=== PATIENT | female | born 1965 | race Caucasian/White ===

== ENCOUNTER 2025-02-07 11:30 | Emergency (ER) | payer BC, SELFPAY ==
--- OUTSIDE RECORDS SUMMARY | 2024-12-25 14:54 | XMS_ITS | Continuity of Care Document ---
Author Organization [facility] ([facility]) Encounters Encounter Type Service Location Arrival/Admit Date Discharge/Depart Date Discharge Disposition Informant Office or other outpatient consultation for a new or established patient, 20 mins or more, which requires a medically appropriate history and/or examination and straightforward medical decision making. [facility] 12/25/2024 20:54:34 [place] 12/25/2024 21:59:04 [facility] Immunizations Effective Date Vaccine Code Vaccine Name Status Inform ant 01/18/2021 08:00:00 UTC 207 - completed C AIR 09/02/2021 07:00:00 UTC 207 - completed C AIR 12/09/2021 07:00:00 UTC 229 - completed C AIR 05/24/2020 07:00:00 UTC 212 - completed C AIR
--- OUTSIDE RECORDS SUMMARY | 2025-02-07 11:36 | XMS_ITS | Clinical Summary ---
Author Organization [facility] Address [address] [place] [id number] Care Team Providers Care Auto Clutch Specialist Name Role Phone Unavailable Primary Care Provider Unavailabl e Source Comments IMPORTANT WARNING: This document is intended for the use of the person orentity to which it is addressed and may contain information that is privilegedand confidential, the disclosure of which is governed by applicable law. If youare not the intended recipient, or the employee or agent responsible to deliverit to the intended recipient, you are notified that any dissemination,distribution or copying of this information is STRICTLY PROHIBITED. If you havereceived this communication in error, please immediately notify us by telephoneat [phone] and return this original message or destroy it.[facility] Allergies No known active allergies Medications ketoconazole 2% shampoo Apply topically two (2) times a week. Active ciclopirox 1% shampooIndicatio ns:Seborrheic dermatitis Apply to scalp, leave on for 3-5 minutes, then rinse off. Use few times weekly. 120 mL 1 7 Active sertraline 50 mg tablet 50 mg Taking 75mg. 7 Active budesonide-formo terol 80-4.5 mcg/act inhalerIndicatio ns:SOB (shortness of breath),Mild intermittent reactive airway disease with acute exacerbation Inhale 2 puffs two (2) times daily. 10.2 g 7 Active Additional Information Patient not taking.Reported on 06/11/2017 buspirone 10 mg tablet 8 Active erythromycin 5 mg/g ophthalmic ointment Place 0.5 inches into both eyes at bedtime. 3.5 g 6 8 Active sertraline 100 mg tablet TK 1 T PO QD GENERIC FOR ZOLOFT 1 8 Active Active Problems Problem Noted Date Diagnosed Date Hip weakness 05/22/2017 Weakness of trunk musculature 05/22/2017 Chronic hip pain, right 05/22/2017 Pain aggravated by walking 05/22/2017 Dry eye syndrome of bilateral lacrimal glands Overview (03/24/2016): Dry eye symptoms right eye more than left eye--see hpi With possible exposure component--very expressive and positive scleral show during instants of conversation--vs normal post dilation TSH levels within normal limits, thought positive Family history for thyroid disease Reviewed photo of drivers license--no lagophthalmos and right eye slightly more closed than left. 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 But gland product is still thick toothpaste like upon expression with pressure to upper lid temporraly both eyes Continue doxy at 50 mg by mouth daily 02/25/15 improved plan discontinue doxy -- Reviewed return precautions Plan annual eye exam 03/03/16 no recurrence of styes, but gets tearing at night Cont warm compresses As above. 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 Intraocular pressure within normal limits on multiple exams RJS Low suspicion recheck 1 yr 06/23/2016 rjs 03/15/16 good iop Will check oct n next visit History of smoking 10/13/2014 Overview (03/24/2016): Quit 2009 Basal cell carcinoma 11/10/2013 Cervical dysplasia 11/10/2013 Immunizations Immunization Administration Dates Next Due Tdap 01/28/2016 influenza vaccine IM quadriv alent (Fluzone Quad) (PF) SYR (6-35 months of age) 01/21/2016(Deferred: Other - ordered in error) influenza vaccine IM quadriv alent (Fluzone Quad) (PF) SYR/SDV (6 months of age and older) 12/08/2016,01/21/2016,11/06/2014 influenza, unspecified formulation 11/15/2018, zoster live vaccine (Zostavax) 01/28/2016 Family History Medical History Relation Comments Depression Father Heart disease Father Hypertension Father Cancer Mother Depression Mother Hypertension Mother Thyroid disease Mother Relation Status Comments Father Mother Social History Tobacco Use Types Packs/Day Years Used Date Smoking Tobacco: Former Cigarettes 0.8 30 Smokeless Tobacco: Never Comments:Quit in 2008 Alcohol Use Standard Drinks/Week Comments Yes 0 (1 standard drink = 0.6 oz pur e alcohol) 3-4 drinks per month Depression Risk (PHQ) Answer Date Recor ded Total Risk Score based on the patient's PHQ-9 if documented Not on file 01/07/2022 Total Risk Score based on th e patient's IP PHQ-2 if documented Not on file 01/07/2022 Total Risk Score based on the patient's PHQ-2 if documented Not on file 01/07/2022 Social Isolation Answer Date Recorded How often do you see or talk to people that you care about and feel close to? Not on file 08/18/2020 Comments No Sex and Gender Information Value Date Recorded Sex Assigned at Not on file Legal Sex Female 7:40 PM PDT Gender Identity Not on file Sexual Orientation Not on file Last Filed Vital Signs Vital Sign Reading Time Taken Comments Blood Pressure 109/74 06/11/2017 10:14 AM PDT Pulse 82 06/11/2017 10:14 AM PDT Temperature 36.9 C (98.4 F) 06/11/2017 10:14 AM PDT Respiratory Rate 16 05/02/2017 2:13 PM PDT Oxygen Saturation 98% 01/23/2017 2:27 PM PST Inhaled Oxygen Concentration - - Weight 79.4 kg (175 lb) 06/11/2017 10:14 AM PDT Height 167 cm (5' 5.75 ) 06/11/2017 10:14 AM PDT Body Mass Index 28.46 06/11/2017 10:14 AM PDT Plan of Treatment Health Maintenance Due Date Last Done Comments TB Screening(Low/Average Risk) 1965 HIV Screening 10/10/1981 Hepatitis B Screening 10/10/1981 Hepatitis C Screening 10/10/1981 CT Colonography 1983 Cologuard (External test,HM not autoupdated) 1983 FIT/FOBT 1983 Sigmoidoscopy 1983 Pneumococcal Vaccine (1 of 1 - PCV) 10/10/2013 Preventive Wellness Visit 10/10/2013 Shingles (Shingrix) Vaccine (2 of 2) 11/27/2019 10/02/2019 Cervical Ca Screening: PAP Smear 04/16/2022 04/16/2017, 04/16/2017, 10/13/2014 Cervical Cancer Screening: H PV Testing 04/16/2022 04/16/2017, 10/13/2014 Breast Cancer Screening: Mammogram 07/06/2022 07/06/2020, 05/17/2017, 05/31/2016, Additional history exists COVID-19 Vaccine(Tracks prim lorri and booster doses, not sup/immunocomp) ( - 2024- season) 2024 03/01/2023, 12/09/2021, 09/02/2021, Additional history exists Influenza Vaccine (#1) 2024 , 11/18/2021, 11/02/2020, Additional history exists Colonoscopy 12/22/2024 12/22/2014, 1104/2014 (Done elsewhere - External doc scanned and reviewed) Colorectal Cancer Screening 12/22/2024 Tdap/Td Vaccine (2 - Td or Tdap) 01/27/2026 01/28/20 16 Procedures Procedure Name Priority Date/Time Associated Diagnosis Comments OUTSIDE MAMMOGRAM 07/06/2020 12: 00 AM PDT PAP SMEAR Routine 04/16/2017 11:05 AM PST Screening for cervical cancer HPV DNA Routine 04/16/2017 11:05 AM PST Screening for cervical cancer COLONOSCOPY 12/22/2014 12:00 AM PST from Last 3 Months or Most Recently Relevant to Health Maintenance Results * OUTSIDE MAMMOGRAM (07/06/2020 12:00 AM PDT) Anatomical Region Laterality Modality Other Narrative 07/06/2020 12:00 AM PDT Ordered by an unspecified provider. [facility] Provider PODS ORDERABLES Final Result * HPV DNA PCR,Genital (04/16/2017 11:05 AM PST) HPV Type 16 Negative Negative for High Risk HPV DNA 04/18/2017 9:[address] [facility] HPV Type 18 Negative Negative for High Risk HPV DNA 04/18/2017 9:[address] [facility] Other High Risk HPV Negative Negative for High Risk HPV DNA 04/18/2017 9:[address] [facility] Genital Cytology (Exo/Endocervix) Collection / Unknown 04/16/2017 11:05 AM PST 04/16/2017 4:47 PM PST Narrative [facility] - 04/18/2017 9:13 PM PST Other High Risk HPV include: 31,33,35,39,45,51,52,56,58,59,66 and 68. Not tested for Low Risk HPV DNA. Dai Pearson MD MICROBIOLOGY - GENERAL ORDERABL ES Final Result [facility] [id number] [facility] [place] [address], [facility] [phone] * COLONOSCOPY (12/22/2014 12:00 AM PST) Narrative 12/22/2014 12:00 AM PST Ordered by an unspecified provider. [facility] Provider GENERIC SURGICAL HISTORY Final R esult from Last 3 Months or Most Recently Relevant to Health Maintenance Insurance [facility] Additional Source Comments Request medical records from [facility] directly by faxing your request to . Please call for additional information and assistance.[facility]
--- OUTSIDE RECORDS SUMMARY | 2025-02-07 11:37 | XMS_ITS | Encounter Summary ---
Author Organization [facility] Address [address] [place] [address] Care Team Providers Care Blind Escort Name Role Phone Bulkupdate, Processing Primary Care Provider Leslie vailable Reason for Visit * Reason Comments Results Encounter Details Date Type Department Care Team (Late st Contact Info) Description 11/02/2016 Telephone Head and Neck Surgery [address] [place] [address] [facility] [address] [place] [address] Samy Skelton MD [address] [facility] [address] [place], [place] [id number] Results Social History Tobacco Use Types Packs/Day Years Used Date Smoking Tobacco: Former Cigarettes 0.8 30 Smokeless Tobacco: Never Comments:Quit in 2008 Alcohol Use Standard Drinks/Week Comments Yes 0 (1 standard drink = 0.6 oz pur e alcohol) 3-4 drinks per month Comments No Sex and Gender Information Value Date Recorded Sex Assigned at Not on file Legal Sex Female 7:40 PM PDT Gender Identity Not on file Sexual Orientation Not on file documented as of this encounter Miscellaneous Notes * Telephone Encounter - Francy Lara MA - 11/06/2016 3:14 PM PDT Audio test results mailed to her home address on file. * Telephone Encounter - Samy Skelton MD - 11/06/2016 12:50 PM PDT Francy, Good Day. The patient would like a copy of her hearing test mailed to her home please. Sincerely, Devon Skelton M.D. * Telephone Encounter - Francy Lara MA - 11/03/2016 10:[address] Skelton, Hope your week off was enjoyable. Patient would like Audio test results. Thank you, Francy * Telephone Encounter - Lydia Vee - 11/02/2016 10:01 AM PDT Results Request - The patient would like to discuss the results of their recent tests. 1) Ordering MD: Costa 2) What type of test(s)? Audiology 3) When was it performed? 10/26 4) Where was it performed? [facility] If [facility], [facility]? If outside facility, what is their phone number? Patient has been notified of the 24-48 hour turnaround time. documented in this encounter Plan of Treatment Not on file documented as of this encounter Visit Diagnoses Not on filedocumented in this encounter Care Teams Blind Escort Relationship Specialty Start Date End Date Bulkupdate, Processing PCP - General 08/11/20 08/11/20 documented as of this encounter Additional Source Comments Request medical records from [facility] directly by faxing your request to . Please call for additional information and assistance.[facility] [employer] [facility]
--- OUTSIDE RECORDS SUMMARY | 2025-02-07 11:37 | XMS_ITS | Encounter Summary ---
Author Organization [facility] Address [address] [place] [address] Care Team Providers Care Barrel Bridge Assembler Name Role Phone Bulkupdate, Processing Primary Care Provider Leslie vailable Reason for Visit * Reason Comments Referral / Auth Encounter Details Date Type Department Care Team (Late st Contact Info) Description 06/05/2017 Telephone [facility] [address] [facility] [address] [place], [place] [phone] Information Security Specialist: Odilia Mei Su, MD [address] [employer] [facility] [address] [place], [place] [phone] Referral / Auth Social History Tobacco Use Types Packs/Day Years [...] encounter Miscellaneous Notes * Telephone Encounter - Remedios Small - 06/05/2017 2:41 PM PDT Pt has an appt 06-11-[address] Harish Casillas. Per Pt she would like to know if this would be the next alternative would refer to since original referring MD is no longer in practice. * Telephone Encounter - Remedios Small - 06/05/2017 2:37 PM PDT Referral Modification Request- Pt would like to ask to have her referral redirected to Gastroenterology. MD Name: Gastro Priv Department: Gastroenterology Location: [place] Patient has been notified of the 24-48 hour turnaround time. documented in this encounter Plan of Treatment Not on file documented as of this encounter Visit Diagnoses Not on filedocumented in this encounter Care Teams Barrel Bridge Assembler Relationship Specialty Start Date End Date Bulkupdate, Processing PCP - General 08/11/20 08/11/20 documented as of this encounter Additional Source Comments Request medical records from [facility] directly by faxing your request to . Please call for additional information and assistance.[facility]
--- OUTSIDE RECORDS SUMMARY | 2025-02-07 11:37 | XMS_ITS | Encounter Summary ---
Author Organization [facility] Address [address] [place] [address] Care Team Providers Care Math And Science Instructor Name Role Phone Bulkupdate, Processing Primary Care Provider Leslie vailable Reason for Visit * Reason Comments Referral / Auth Encounter Details Date Type Department Care Team (Late st Contact Info) Description 08/14/2016 Telephone [place] [address] [place], [place] [phone] Grain Elevator Clerk: Odilia Mei Su, MD [email or web address] [facility] [address] [place], [place] [phone] Referral / Auth Social History Tobacco Use [...] encounter Miscellaneous Notes * Telephone Encounter - Gricelda Anaya MA - 08/14/2016 4:49 PM PDT Called pt to inform, lm * Telephone Encounter - Dai Pearson MD - 08/14/2016 4:14 PM PDT Gricelda, pls recommend her to come in to determine urgency of dermatology apt since dermatology appointment usually can be months away. Lala * Telephone Encounter - Gricelda Anaya MA - 08/14/2016 3:42 PM PDT * Telephone Encounter - Emery Kelsey Jr. - 08/14/2016 2:37 PM PDT Referral Request 1) Patient is requesting a referral to: Dermatology Specific location? Karishma Newton MD in mind? 2) The issue (diagnosis, symptoms): skin concern left arm looks like a sore that is growing/patienthas had basal cell cancer in the past 3) Has patient been seen by their doctor for this issue? Yes on 07/11/16 4) Was an appointment offered? No 5) Patient's last office visit: 07/11/16 Patient has been notified of the 24-48 hour turnaround time. documented in this encounter Plan of Treatment Not on file documented as of this encounter Visit Diagnoses Not on filedocumented in this encounter Care Teams Math And Science Instructor Relationship Specialty Start Date End Date Bulkupdate, Processing PCP - General 08/11/20 08/11/20 documented as of this encounter Additional Source Comments Request medical records from [facility] directly by faxing your request to . Please call for additional information and assistance.[facility]
--- OUTSIDE RECORDS SUMMARY | 2025-02-07 11:37 | XMS_ITS | Encounter Summary ---
Author Organization [facility] Address [address] [place] [address] Care Team Providers Care Sewing Machine Operator Plastic Zipper Name Role Phone Bulkupdate, Processing Primary Care Provider Leslie vailable Reason for Visit * Reason Comments Results Encounter Details Date Type Department Care Team (Late st Contact Info) Description 05/24/2017 Telephone [facility] [address] [facility] [address] [place], [place] [phone] Roofer Applicator: Odilia Mei Su, MD [address] [employer] [facility] [address] [place], [place] [phone] Results Social History Tobacco Use Types Packs/Day [...] encounter Miscellaneous Notes * Telephone Encounter - Dai Pearson MD - 06/05/2017 4:39 PM PDT Released online. * Telephone Encounter - Jacquelyn Jordan - 06/05/2017 4:07 PM PDT I sent the request as URGENT and they should be faxing it to the fax in medical records, I am leaving now so please have your MA check the fax please. Thank you * Telephone Encounter - Gricelda Anaya MA - 06/05/2017 3:07 PM PDT I do not see the results * Telephone Encounter - Remedios Small - 06/05/2017 2:40 PM PDT Pt is following up in regards to previous message and would like to ask to please have the results released so she may have access online.Thank you. * Telephone Encounter - Gricelda Mclean MD - 05/24/2017 1:53 PM PDT Jacquelyn, I don't see results in the chart. Please request. * Telephone Encounter - Gricelda Barclay - 05/24/2017 9:54 AM PDT Covering MD The patient or caller has been notified that the physician is currently out of the office. Results Request - The patient would like to discuss the results of their recent tests. Pt requesting her results be viewable on pt portal. 1) Ordering MD: Dr. Pearson 2) What type of test(s)? Mammo 3) When was it performed? 05/17/17 4) Where was it performed? [facility] [place] If [facility], are results available in [facility]? yes If outside facility, what is their phone number? n/a Patient has been notified of the 24-48 hour turnaround time. documented in this encounter Plan of Treatment Not on file documented as of this encounter Visit Diagnoses Not on filedocumented in this encounter Care Teams Sewing Machine Operator Plastic Zipper Relationship Specialty Start Date End Date Bulkupdate, Processing PCP - General 08/11/20 08/11/20 documented as of this encounter Additional Source Comments Request medical records from [facility] directly by faxing your request to . Please call for additional information and assistance.[facility]
--- OUTSIDE RECORDS SUMMARY | 2025-02-07 11:37 | XMS_ITS | Clinical Summary ---
Author Organization [facility] Address [address] [place] [address] Care Team Providers Care Senior Business Broker Name Role Phone Unavailable Primary Care Provider Unavailabl e Social History Tobacco Use Types Packs/Day Years Used Date Smoking Tobacco: Never Assessed Comments Unknown Sex and Gender Information Value Date Recorded Sex Assigned at Not on file Legal Sex Female 2:42 PM PDT Gender Identity Not on file Sexual Orientation Not on file Plan of Treatment Health Maintenance Due Date Last Done Comments Colonoscopy 1965 Colorectal Cancer Screening 1965 FIT 1963 Fecal Mt-sDNA/Cologuard 1965 Mammogram 1965 Hepatitis C Screening 10/10/1981 ANNUAL WOMEN PREVENTIVE CARE EXAM 1983 Pap Smear 10/10/1984 Cervical Cancer Screening 10/10/1993 HPV/Cotest 10/10/1993 Pneumococcal Vaccines (50+ y ears) (1 of 1 - PCV) 10/10/2013 Zoster Vaccines (1 of 2) 10/10/2013 Depression Screening (Jmin tomy for this is optional) 02/20/2024 Social Drivers of Health (SDoH) 02/20/2024 COVID-19 Vaccine (4 - 2024-2 6 season) 2024 09/02/2021, 01/18/2021, 05/24/2020 Influenza Vaccine (#1) 2024 , 11/06/2019, 11/15/2018, Additional history exists DTaP, Tdap, and Td Vaccines (2 - Td or Tdap) 01/27/2026 01/28/2016 RSV Vaccines (1 - 1-dose 75+ series) 10/10/2038
--- OUTSIDE RECORDS SUMMARY | 2025-02-07 11:37 | XMS_ITS | Clinical Summary ---
Author Organization [facility] Address 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 Name Role Phone SUNILROB Primary Care Physician Unavailab VON Santoro Attending Clinician Unavailable LAB, MISC Attending Clinician Unavailable LAB, MISC Attending Clinician Unavailable PACO AKHTAR Attending Clinician Unavailable SURAJ KEARNS Attending Clinician Unavailable JES ANGELES Attending Clinician Unavailable LAB, M[facility] Attending Clinician Unavailable FRED HAMMOND Attending Clinician Leslie vaCE Villa Attending Clinician Unavailable CE HOOKER Attending Clinician UnavailHARI Roberts Attending Clinician Unavailable LAMBERT SHAH Attending Clinician Unavailabl e LAB, MISC Attending Clinician Unavailable ANDREIA GRAY Attending Clinician UnavailBEENA Richardson Attending Clinician Unavailable LUCIE MOTLEY Attending Clinician Unavailable ARIANE MATHUR Attending Clinician Unavailable FRANCHESCA DOWLING Attending Clinician Unavailable DIEGO MARIANO Attending Clinician Unavailable MARLENE BOSS Attending Clinician Unavai lable LAB, MISC Attending Clinician Unavailable JOHNNA PALOMARES Attending Clinician Unavailable JASWINDER CORTES Attending Clinician Unavailable PORFIRIO ARMENTA Attending Clinician Unava ilable SIDDHARTH LANDON Attending Clinician Unavailable ANTONIA SHORT Admitting Clinician Unava ilable PACO AKHTAR Admitting Clinician Unavailable VON LOPEZ Admitting Clinician Unavailable LAB, MISC Admitting Clinician Unavailable LAB, MISC Admitting Clinician Unavailable SURAJ KEARNS Admitting Clinician Unavailable JES ANGELES Admitting Clinician Unavailable LAB, MISC Admitting Clinician Unavailable FRED HAMMOND Admitting Clinician Leslie CE Isaacs Admitting Clinician Unavailable CE HOOKER Admitting Clinician Unavaila HARI Cooley Admitting Clinician Unavailable LAMBERT SHAH Admitting Clinician Unavailabl e LAB, [facility] Admitting Clinician Unavailable ANDREIA GRAY Admitting Clinician UnavailBEENA Richardson Admitting Clinician Unavailable LUCIE MOTLEY Admitting Clinician Unavailable ARIANE MATHUR Admitting Clinician Unavailable FRANCHESCA DOWLING Admitting Clinician Unavailable DIEGO MARIANO Admitting Clinician Unavailable MARLENE BOSS Admitting Clinician Elen sanz LAB, [facility] Admitting Clinician Unavailable JOHNNA PALOMARES Admitting Clinician Unavailable JASWINDER CORTES Admitting Clinician Unavailable SINAI SIMMS Admitting Clinician Unavailable Source Comments Data may have been removed from this record as required by [place] law. [facility] Payers Payer Name Policy Type Policy Number Effective Date Expira tion Date ANTHEM_MEDICAID Health Maintenance Organization (HMO) 2017 00:00:00 [place] [facility] [id number] 2017 00:00:00 Problems This patient has no known problems. Allergies, Adverse Reactions, Alerts Allergy Name Allergy Type Status Severity Reaction(s) Onset Date Inactive Date Treating Clinician Comments NO KNOWN ENVIRONMENTAL ALLERGIES Drug allergy Active NO KNOWN ENVIRONMENTAL ALLERGIES Drug allergy Active Medications Ordered Medication Name Filled Medication Name Start Date Stop Date Current Medication? Ordering Clinician Indication Dosage Frequency Signature (SIG) Comments Components cyanocobala min (25 VIAL in 1 CARTON > 1 mL in 1 VIAL ) cyanocobala min (25 VIAL in 1 CARTON > 1 mL in 1 VIAL ) 1-19 00:00: 00 Yes PACO AKHTAR Triamcinolo ne acetonide (15 g in 1 TUBE ) Triamcinolo ne acetonide (15 g in 1 TUBE ) 5-23 00:00: 00 Yes SURAJ Gigi (SARAH KEARNS BUSPIRONE TAB 15MG BUSPIRONE TAB 15MG 2020-02 2-14 00:00: 00 Yes MILTON PICKERING TOPIRAMATE TAB 25MG TOPIRAMATE TAB 25MG 2020-02 2-03 00:00: 00 Yes ANTONIA SHORT BUSPIRONE TAB 15MG BUSPIRONE TAB 15MG 2020-02 1-12 00:00: 00 Yes MILTON PICKERING BUSPIRONE TAB 15MG BUSPIRONE TAB 15MG 2021-1 0-12 00:00: 00 Yes MILTON PICKERING BUSPIRONE TAB 15MG BUSPIRONE TAB 15MG 1-0 9-10 00:00: 00 Yes MILTON PICKERING Buspirone Hydrochlori de (60 TABLET in 1 BOTTLE ) Buspirone Hydrochlori de (60 TABLET in 1 BOTTLE ) 1-0 9-10 00:00: 00 Yes MILTON PICKERING BUSPIRONE TAB 15MG BUSPIRONE TAB 15MG 1-0 8-12 00:00: 00 Yes MILTON PICKERING BUSPIRONE TAB 15MG BUSPIRONE TAB 15MG 1-0 7-14 00:00: 00 Yes MILTON PICKERING Buspirone Hydrochlori de (60 TABLET in 1 BOTTLE ) Buspirone Hydrochlori de (60 TABLET in 1 BOTTLE ) 1-0 6-14 00:00: 00 Yes MILTON PICKERING BUSPIRONE TAB 15MG BUSPIRONE TAB 15MG 1-0 6-14 00:00: 00 Yes MILTON PICKERING BUSPIRONE TAB 15MG BUSPIRONE TAB 15MG 2021-0 5-12 00:00: 00 Yes MILTON PICKERING BUSPIRONE TAB 15MG BUSPIRONE TAB 15MG 1-0 4-12 00:00: 00 Yes MILTON PICKERING BUSPIRONE TAB 15MG BUSPIRONE TAB 15MG 2021-0 3-12 00:00: 00 Yes MILTON PICKERING BUSPIRONE TAB 15MG BUSPIRONE TAB 15MG 1-0 2-12 00:00: 00 Yes MILTON PICKERING BUSPIRONE TAB 15MG BUSPIRONE TAB 15MG 2021-0 1-12 00:00: 00 Yes MILTON PICKERING Buspirone Hydrochlori de (60 TABLET in 1 BOTTLE ) Buspirone Hydrochlori de (60 TABLET in 1 BOTTLE ) 2019-1 1-12 00:00: 00 Yes MILTON PICKERING BUSPIRONE TAB 15MG BUSPIRONE TAB 15MG 2020-1 1-12 00:00: 00 Yes MILTON PICKERING Chlorhexidi ne Gluconate (473 mL in 1 BOTTLE ) Chlorhexidi ne Gluconate (473 mL in 1 BOTTLE ) 2020-1 0-22 00:00: 00 Yes BISI RG BUSPIRONE TAB 15MG BUSPIRONE TAB 15MG 2020-1 0-12 00:00: 00 Yes DEMARIO LOPEZ, MSN FLUBLOK QUAD INJ 2020-21 FLUBLOK QUAD INJ 2020-21 2020-0 9-17 00:00: 00 Yes MOODY MURRAY ANNA BUSPIRONE TAB 15MG BUSPIRONE TAB 15MG 2020-0 9-14 00:00: 00 Yes DEMARIO LOPEZ, MSN BUSPIRONE TAB 15MG BUSPIRONE TAB 15MG 2020-0 8-13 00:00: 00 Yes DEMARIO LOPEZ, MSN SHINGRIX INJ 50/0.5ML SHINGRIX INJ 50/0.5ML 2020-0 8-13 00:00: 00 Yes BEENA DESAI S, SERTRALINE TAB 100MG SERTRALINE TAB 100MG 2020-0 7-13 00:00: 00 Yes DEMARIO LOPEZ, MSN BUSPIRONE TAB 15MG BUSPIRONE TAB 15MG 2020-0 7-13 00:00: 00 Yes DEMARIO LOPEZ, MSN Buspirone Hydrochlori de (60 TABLET in 1 BOTTLE ) Buspirone Hydrochlori de (60 TABLET in 1 BOTTLE ) 2020-0 6-15 00:00: 00 Yes KIRSTEN HANKS BUSPIRONE TAB 15MG BUSPIRONE TAB 15MG 2020-0 6-15 00:00: 00 Yes DEMARIO LOPEZ MSN SERTRALINE TAB 100MG SERTRALINE TAB 100MG 2020-0 6-15 00:00: 00 Yes DEMARIO LOPEZ, MSN BUSPIRONE TAB 15MG BUSPIRONE TAB 15MG 2020-0 5-15 00:00: 00 Yes DEMARIO LOPEZ, MSN SERTRALINE TAB 100MG SERTRALINE TAB 100MG 2020-0 5-15 00:00: 00 Yes DEMARIO LOPEZ, MSN IBUPROFEN TAB 600MG IBUPROFEN TAB 600MG 2019-0 5-01 00:00: 00 Yes SIDDHARTH LANDON OXYCOD/APAP TAB 5-325MG OXYCOD/APAP TAB 5-325MG 2020-0 5-01 00:00: 00 Yes SIDDHARTH LANDON BUSPIRONE TAB 15MG BUSPIRONE TAB 15MG 2020-0 4-16 00:00: 00 Yes DEMARIO LOPEZ, MSN SERTRALINE TAB 100MG SERTRALINE TAB 100MG 2020-0 4-16 00:00: 00 Yes DEMARIO LOPEZ, MSN BUSPIRONE TAB 15MG BUSPIRONE TAB 15MG 2020-0 3-16 00:00: 00 Yes DEMARIO LOPEZ, MSN SERTRALINE TAB 100MG SERTRALINE TAB 100MG 2020-0 3-16 00:00: 00 Yes DEMARIO LOPEZ, MSN SERTRALINE TAB 100MG SERTRALINE TAB 100MG 2020-0 2-14 00:00: 00 Yes DEMARIO LOPEZ, MSN BUSPIRONE TAB 15MG BUSPIRONE TAB 15MG 2020-0 2-14 00:00: 00 Yes DEMARIO LOPEZ, MSN BUSPIRONE TAB 15MG BUSPIRONE TAB 15MG 2020-0 1-14 00:00: 00 Yes DEMARIO LOPEZ, MSN SERTRALINE TAB 100MG SERTRALINE TAB 100MG 2020-0 1-14 00:00: 00 Yes DEMARIO LOPEZ, MSN BUSPIRONE TAB 15MG BUSPIRONE TAB 15MG 2019-1 2-09 00:00: 00 Yes DEMARIO LOPEZ, MSN SERTRALINE TAB 100MG SERTRALINE TAB 100MG 2019-1 2-09 00:00: 00 Yes DEMARIO LOPEZ, MSN SERTRALINE TAB 100MG SERTRALINE TAB 100MG 2019-1 1-08 00:00: 00 Yes DEMARIO LOPEZ, MSN BUSPIRONE TAB 15MG BUSPIRONE TAB 15MG 2019-1 1-08 00:00: 00 Yes DEMARIO LOPEZ, MSN BUSPIRONE TAB 15MG BUSPIRONE TAB 15MG 2019-1 0-09 00:00: 00 Yes DEMARIO LOPEZ, MSN SERTRALINE TAB 100MG SERTRALINE TAB 100MG 2019-1 0-09 00:00: 00 Yes DEMARIO LOPEZ, MSN BUSPIRONE TAB 15MG BUSPIRONE TAB 15MG 2019-0 9-09 00:00: 00 Yes DEMARIO LOPEZ, MSN SERTRALINE TAB 100MG SERTRALINE TAB 100MG 2019-0 9-09 00:00: 00 Yes DEMARIO LOPEZ, MSN SERTRALINE TAB 100MG SERTRALINE TAB 100MG 2019-0 8- 00:00: 00 Yes DEMARIO LOPEZ, MSN BUSPIRONE TAB 15MG BUSPIRONE TAB 15MG 2019-0 8-09 00:00: 00 Yes DEMARIO LOPEZ, MSN BUSPIRONE TAB 15MG BUSPIRONE TAB 15MG 2019-0 7-09 00:00: 00 Yes DEMARIO LOPEZ, MSN SERTRALINE TAB 100MG SERTRALINE TAB 100MG 2019-0 7-09 00:00: 00 Yes DEMARIO LOPEZ, MSN SERTRALINE TAB 100MG SERTRALINE TAB 100MG 2019-0 6-03 00:00: 00 Yes MILTON PICKERING BUSPIRONE TAB 15MG BUSPIRONE TAB 15MG 2019-0 6-03 00:00: 00 Yes MILTON PICKERING Buspirone Hydrochlori de (100 TABLET in 1 BOTTLE ) Buspirone Hydrochlori de (100 TABLET in 1 BOTTLE ) 2019-0 3-23 00:00: 00 Yes MILTON PICKERING SERTRALINE TAB 100MG SERTRALINE TAB 100MG 2019-0 3-21 00:00: 00 Yes MILTON PICKERING FLUOCIN ACET LIBERTAD 0.01% FLUOCIN ACET LIBERTAD 0.01% 2019-0 3-20 00:00: 00 Yes AVRIL ALTMAN L (P METRONIDAZO L TAB 500MG METRONIDAZO L TAB 500MG 2019-0 3-08 00:00: 00 Yes BEENA DESAI S, BUSPIRONE TAB 10MG BUSPIRONE TAB 10MG 2019-0 2-25 00:00: 00 Yes MILTON PICKERING SERTRALINE TAB 100MG SERTRALINE TAB 100MG 2019-0 2-14 00:00: 00 Yes MILTON PICKERING BUSPIRONE TAB 10MG BUSPIRONE TAB 10MG 2019-0 1-25 00:00: 00 Yes JAMEL ALONZO S SERTRALINE TAB 100MG SERTRALINE TAB 100MG 2019-0 1-17 00:00: 00 Yes MILTON PICKERING BUSPIRONE TAB 10MG BUSPIRONE TAB 10MG 2018-1 2-26 00:00: 00 Yes JAMEL ALONZO S SERTRALINE TAB 100MG SERTRALINE TAB 100MG 2018- 2-19 00:00: 00 Yes MILTON PICKERING BUSPIRONE TAB 10MG BUSPIRONE TAB 10MG 2017-02 1-30 00:00: 00 Yes MILTON PICKERING SERTRALINE TAB 50MG SERTRALINE TAB 50MG 2017- 1-19 00:00: 00 Yes BEENA DESAI S, BUSPIRONE TAB 10MG BUSPIRONE TAB 10MG 2017- 0-31 00:00: 00 Yes JAVIER PICKERINGANTHA SERTRALINE TAB 50MG SERTRALINE TAB 50MG 2017- 0-18 00:00: 00 Yes BEENA DESAI S, BUSPIRONE TAB 15MG BUSPIRONE TAB 15MG 2017-0 9- 00:00: 00 Yes BEENA DESAI S, SERTRALINE TAB 50MG SERTRALINE TAB 50MG 2017-0 9 00:00: 00 Yes BEENA DESAI S, BUSPIRONE TAB 10MG BUSPIRONE TAB 10MG 2017-0 9 00:00: 00 Yes BEENA DESAI S, Procedures Procedure Date / Time Performed Performing Clinicia n Device Medication list documented i n medical record (COA) 2024-07-01 00:00:00 Review of all medications by a prescribing practitioner or clinical pharmacist (such as, prescriptions, OTCs, herbal therapies and supplements) documented in the medical record (COA) 2024-07-01 00:00:00 Influenza immunization administered or previously received (HIV) (P-ESRD) 2024-07-01 00:00:00 Body Mass Index (BMI), documented (PV) 2024-07-01 00:00:00 Pneumococcal vaccine administered or previously received (COPD) (PV), (IBD) 2024-07-01 00:00:00 Most recent systolic blood pressure less than 130 mm Hg (DM), (HTN, CKD, CAD) 2024-07-01 00:00:00 Most recent diastolic blood pressure less than 80 mm Hg (HTN, CKD, CAD) (DM) 2024-07-01 00:00:00 Weight recorded (PAG) 2024-07-01 00:00:00 Blood pressure measured (CKD)(DM) 2024-07-01 00:00:00 Vital signs (temperature, pulse, respiratory rate, and blood pressure) documented and reviewed (CAP) (EM) 2024-07-01 00:00:00 Current tobacco non-user (CA D, CAP, COPD, PV) (DM) (IBD) 2024-07-01 00:00:00 Negative screen for depressi ve symptoms as categorized by using a standardized depression screening/assessment tool (MDD) 2024-07-01 00:00:00 [id number] 2024-06-13 00:00:00 [id number] 2024-06-13 00:00:00 Measurement of albumin 2024-06-13 00:00:00 Troponin, quantitative 2024-06-13 00:00:00 Fibrin degradation products, D-dimer; quantitative 2024-06-13 00:00:00 Thromboplastin time, partial (PTT); plasma or whole blood 2024-06-13 00:00:00 Blood count; complete (CBC), automated (Hgb, Hct, RBC, WBC and platelet count) and automated differential WBC count 2024-06-13 00:00:00 Prothrombin time 2024-06-13 00:00:00 Radiologic examination, ches t; single view 2024-06-13 00:00:00 [id number] 2024-06-13 00:00:00 [id number] 2024-06-13 00:00:00 Electrocardiogram, routine E CG with at least 12 leads; tracing only, without interpretation and report 2024-06-13 00:00:00 Electrocardiogram, routine E CG with at least 12 leads; interpretation and report only 2024-06-13 00:00:00 Fibrin degradation products, D-dimer; quantitative 2024-06-13 00:00:00 Troponin, quantitative 2024-06-13 00:00:00 Measurement of albumin 2024-06-13 00:00:00 Blood count; complete (CBC), automated (Hgb, Hct, RBC, WBC and platelet count) and automated differential WBC count 2024-06-13 00:00:00 Prothrombin time 2024-06-13 00:00:00 [id number] 2024-06-13 00:00:00 Thromboplastin time, partial (PTT); plasma or whole blood 2024-06-13 00:00:00 Folic acid; serum 2024-03-20 00:00:00 Hemoglobin; glycosylated (A1C) 2024-03-20 00:00:00 Lipid panel This panel must include the following: Cholesterol, serum, total (89090) Lipoprotein, direct measurement, high density cholesterol (HDL cholesterol) (93895) Triglycerides (47155) 2024-03-20 00:00:00 Immunologic analysis techniq ue on serum 2024-03-20 00:00:00 Thyroid stimulating hormone (TSH) 2024-03-20 00:00:00 Cyanocobalamin (Vitamin B-12) 2024-03-20 00:00:00 Collection of venous blood b y venipuncture 2024-03-20 00:00:00 Measurement of albumin 2024-03-20 00:00:00 Blood count; complete (CBC), automated (Hgb, Hct, RBC, WBC and platelet count) and automated differential WBC count 2024-03-20 00:00:00 Homocysteine 2024-03-20 00:00:00 Pyridoxal phosphate (Vitamin B-6) 2024-03-20 00:00:00 Thiamine (Vitamin B-1) 2024-03-20 00:00:00 Measurement of organic acid 2024-03-20 00:00:00 Brief emotional/behavioral assessment (eg, depression inventory, attention-deficit/hyperactivity disorder [ADHD] scale), with scoring and documentation, per standardized instrument 2024-01-31 00:00:00 [id number] 2024-01-21 00:00:00 Immunization administration (includes percutaneous, intradermal, subcutaneous, or intramuscular injections); 1 vaccine (single or combination vaccine/toxoid) 2024-01-21 00:00:00 Immunologic analysis techniq ue on serum 2024-01-08 00:00:00 Measurement of immunoglobulin 2024-01-08 00:00:00 Protein; electrophoretic fractionation and quantitation, serum 2024-01-08 00:00:00 Beta-2 microglobulin 2024-01-08 00:00:00 Collection of venous blood b y venipuncture 2024-01-08 00:00:00 [id number] 2024-01-08 00:00:00 Blood count; complete (CBC), automated (Hgb, Hct, RBC, WBC and platelet count) and automated differential WBC count 2024-01-08 00:00:00 Bilirubin; direct 2024-01-08 00:00:00 Measurement of albumin 2024-01-08 00:00:00 Immunization administration (includes percutaneous, intradermal, subcutaneous, or intramuscular injections); 1 vaccine (single or combination vaccine/toxoid) 2023-11-22 00:00:00 Influenza virus vaccine, trivalent (IIV3), split virus, preservative free, 0.5 mL dosage, for intramuscular use 2023-11-22 00:00:00 Blood, occult, by fecal hemoglobin determination by immunoassay, qualitative, feces, 1-3 simultaneous determinations 2023-11-19 00:00:00 Magnetic resonance (eg, prot on) imaging, spinal canal and contents, cervical; without contrast material 2023-11-14 00:00:00 Magnetic resonance (eg, prot on) imaging, spinal canal and contents, lumbar; without contrast material 2023-11-14 00:00:00 Needle electromyography, eac h extremity, with related paraspinal areas, when performed, done with nerve conduction, amplitude and latency/velocity study; complete, five or more muscles studied, innervated by three or mor 2023-11-02 00:00:00 Nerve conduction study 2023-11-02 00:00:00 Measurement of organic acid 2023-10-17 00:00:00 Copper 2023-10-17 00:00:00 Pyridoxal phosphate (Vitamin B-6) 2023-10-17 00:00:00 Thiamine (Vitamin B-1) 2023-10-17 00:00:00 Screening digital breast tomosynthesis, bilateral (List separately in addition to code for primary procedure) 2023-08-21 00:00:00 Mammography of both breasts 2023-08-21 00:00:00 Brief emotional/behavioral assessment (eg, depression inventory, attention-deficit/hyperactivity disorder [ADHD] scale), with scoring and documentation, per standardized instrument 2023-08-10 00:00:00 Electrocardiogram, routine E CG with at least 12 leads; with interpretation and report 2023-06-07 00:00:00 Electrocardiogram, routine E CG with at least 12 leads; with interpretation and report 2023-06-07 00:00:00 Basic vestibular evaluation, includes spontaneous nystagmus test with eccentric gaze fixation nystagmus, with recording, positional nystagmus test, minimum of 4 positions, with recording, optokinetic nystagmus test, bidi 2023-05-09 00:00:00 Acoustic immittance testing, includes tympanometry (impedance testing), acoustic reflex threshold testing, and acoustic reflex decay testing 2023-05-09 00:00:00 Caloric vestibular test 2023-05-09 00:00:00 Sinusoidal vertical axis rotational testing 2023-05-09 00:00:00 Measurement of organic acid 2023-02-22 00:00:00 Cryoglobulin, qualitative or semi-quantitative (eg, cryocrit) 2023-02-22 00:00:00 Immunologic analysis techniq ue on serum 2023-02-22 00:00:00 Measurement of albumin 2023-02-22 00:00:00 Cyanocobalamin (Vitamin B-12) 2023-02-22 00:00:00 Blood count; complete (CBC), automated (Hgb, Hct, RBC, WBC and platelet count) and automated differential WBC count 2023-02-22 00:00:00 Collection of venous blood b y venipuncture 2023-02-22 00:00:00 Lipid panel This panel must include the following: Cholesterol, serum, total (31825) Lipoprotein, direct measurement, high density cholesterol (HDL cholesterol) (77957) Triglycerides (39499) 2023-02-22 00:00:00 Homocysteine 2023-02-22 00:00:00 Hemoglobin; glycosylated (A1C) 2023-02-22 00:00:00 Thyroid stimulating hormone (TSH) 2023-02-22 00:00:00 Folic acid; serum 2023-02-22 00:00:00 Pyridoxal phosphate (Vitamin B-6) 2023-02-22 00:00:00 Thiamine (Vitamin B-1) 2023-02-22 00:00:00 Measurement of immunoglobulin 2023-01-25 00:00:00 Immunologic analysis techniq ue on serum 2023-01-25 00:00:00 Protein; electrophoretic fractionation and quantitation, serum 2023-01-25 00:00:00 Beta-2 microglobulin 2023-01-25 00:00:00 Collection of venous blood b y venipuncture 2023-01-25 00:00:00 Blood count; complete (CBC), automated (Hgb, Hct, RBC, WBC and platelet count) and automated differential WBC count 2023-01-25 00:00:00 Bilirubin; direct 2023-01-25 00:00:00 [id number] 2023-01-25 00:00:00 Measurement of albumin 2023-01-25 00:00:00 Radiologic examination, osse ous survey; complete (axial and appendicular skeleton) 2023-01-15 00:00:00 Brief emotional/behavioral assessment (eg, depression inventory, attention-deficit/hyperactivity disorder [ADHD] scale), with scoring and documentation, per standardized instrument 2023-01-10 00:00:00 Injection, gadoterate meglumine, 0.1 ml 2023-01-04 00:00:00 Magnetic resonance (eg, prot on) imaging, brain (including brain stem); without contrast material, followed by contrast material(s) and further sequences 2023-01-04 00:00:00 Blood, occult, by fecal hemoglobin determination by immunoassay, qualitative, feces, 1-3 simultaneous determinations 2022-12-01 00:00:00 Mammography of both breasts 2022-09-13 00:00:00 VON LOPEZ Screening digital breast tomosynthesis, bilateral (List separately in addition to code for primary procedure) 2022-09-13 00:00:00 VON LOPEZ Measurement of organic acid 2022-07-06 00:00:00 [place], [facility] [place]yridoxal phosphate (Vitamin B-6) 2022-07-06 00:00:00 LAB, [facility] Thiamine (Vitamin B-1) 2022-07-06 00:00:00 LAB, [facility] Measurement of albumin 2022-07-06 00:00:00 LAB, [facility] Immunologic analysis techniq ue on serum 2022-07-06 00:00:00 LAB, [facility] Cyanocobalamin (Vitamin B-12) 2022-07-06 00:00:00 LAB, [facility] Folic acid; serum 2022-07-06 00:00:00 LAB, [facility] Lipid panel This panel must include the following: Cholesterol, serum, total (66366) Lipoprotein, direct measurement, high density cholesterol (HDL cholesterol) (90474) Triglycerides (25940) 2022-07-06 00:00:00 LAB, [facility] Hemoglobin; glycosylated (A1C) 2022-07-06 00:00:00 LAB , [facility] Collection of venous blood b y venipuncture 2022-07-06 00:00:00 LAB, [facility] Homocysteine 2022-07-06 00:00:00 LAB, [facility] Thyroid stimulating hormone (TSH) 2022-07-06 00:00:00 LAB, [facility] Blood count; complete (CBC), automated (Hgb, Hct, RBC, WBC and platelet count) and automated differential WBC count 2022-07-06 00:00:00 LAB, [facility] Detection test for human papillomavirus (hpv) 2022-06-02 00:00:00 LAB, [facility] Pap test 2022-06-02 00:00:00 LAB, [facility] Therapeutic, prophylactic, o r diagnostic injection (specify substance or drug); subcutaneous or intramuscular 2022-04-11 00:00:00 LAMP, JES C Injection, vitamin b-12 cyanocobalamin, up to 1000 mcg 2022-04-11 00:00:00 LAMP, JES C Therapeutic, prophylactic, o r diagnostic injection (specify substance or drug); subcutaneous or intramuscular 2022-04-04 00:00:00 LAMP, JES C Therapeutic, prophylactic, o r diagnostic injection (specify substance or drug); subcutaneous or intramuscular 2022-03-27 00:00:00 LAMP, JES C Injection, vitamin b-12 cyanocobalamin, up to 1000 mcg 2022-03-27 00:00:00 LAMP, JES C Injection, vitamin b-12 cyanocobalamin, up to 1000 mcg 2022-03-20 00:00:00 LAMP JES C Pyridoxal phosphate (Vitamin B-6) 2022-02-17 00:00:00 LAB, [facility] Thiamine (Vitamin B-1) 2022-02-17 00:00:00 LAB, [facility] Copper 2022-02-17 00:00:00 LAB, [facility] Measurement of organic acid 2022-02-17 00:00:00 LAB, [facility] Magnetic resonance (eg, prot on) imaging, brain (including brain stem); without contrast material, followed by contrast material(s) and further sequences 2022-01-02 00:00:00 CE COLEMAN Low osmolar contrast materia l, 300-399 mg/ml iodine concentration, per ml 2022-01-02 00:00:00 CE HOOKER Computed tomography, thorax; with contrast material(s) 2022-01-02 00:00:00 CE HOOKER Computed tomography, abdomen and pelvis; with contrast material(s) 2022-01-02 00:00:00 CE HOOKER Blood, occult, by fecal hemoglobin determination by immunoassay, qualitative, feces, 1-3 simultaneous determinations 2021-12-12 00:00:00 LAB, MISC Measurement of total protein in serum 2021-12-07 00:00:00 LAB, MISC [id number] 2021-12-07 00:00:00 LAB, MISC Protein; electrophoretic fractionation and quantitation, serum 2021-12-07 00:00:00 LAB, MISC Measurement of immunoglobulin 2021-12-07 00:00:00 LAB, MISC Immunologic analysis techniq ue on serum 2021-12-07 00:00:00 LAB, MISC Measurement of albumin 2021-12-07 00:00:00 HARI ROMO Eligible clinician attests t o documenting in the medical record they obtained, updated, or reviewed the patient's current medications 2021-12-07 00:00:00 HARI ROMO Blood count; complete (CBC), automated (Hgb, Hct, RBC, WBC and platelet count) and automated differential WBC count 2021-12-07 00:00:00 HARI ROMO Mammography of both breasts 2021-07-20 00:00:00 VON LOPEZ Screening digital breast tomosynthesis, bilateral (List separately in addition to code for primary procedure) 2021-07-20 00:00:00 VON LOPEZ [id number] 2021-06-02 00:00:00 LAB, MISC Protein; electrophoretic fractionation and quantitation, serum 2021-06-02 00:00:00 LAB, MISC Measurement of immunoglobulin 2021-06-02 00:00:00 LAB, MISC Immunologic analysis techniq ue on serum 2021-06-02 00:00:00 LAB, MISC Measurement of total protein in serum 2021-06-02 00:00:00 LAB, MISC Collection of venous blood b y venipuncture 2021-06-02 00:00:00 LAMBERT SHAH Measurement of albumin 2021-06-02 00:00:00 ATKINS Eligible clinician attests t o documenting in the medical record they obtained, updated, or reviewed the patient's current medications 2021-06-02 00:00:00 LAMBERT SHAH Blood count; complete (CBC), automated (Hgb, Hct, RBC, WBC and platelet count) and automated differential WBC count 2021-06-02 00:00:00 LAMBERT SHAH Pyridoxal phosphate (Vitamin B-6) 2021-04-28 00:00:00 LAB, MISC Copper 2021-04-28 00:00:00 LAB, MISC Thiamine (Vitamin B-1) 2021-04-28 00:00:00 LAB, MISC Measurement of organic acid 2021-04-28 00:00:00 LAB, M ISC Low osmolar contrast materia l, 300-399 mg/ml iodine concentration, per ml 2021-04-22 00:00:00 ANDREIA GRAY Computed tomographic angiography, head, with contrast material(s), including noncontrast images, if performed, and image postprocessing 2021-04-22 00:00:00 ANDREIA GRAY Computed tomographic angiography, neck, with contrast material(s), including noncontrast images, if performed, and image postprocessing 2021-04-22 00:00:00 ANDREIA GRAY Magnetic resonance (eg, prot on) imaging, brain (including brain stem); without contrast material, followed by contrast material(s) and further sequences 2021-04-21 00:00:00 ANDREIA GRAY Injection, gadoterate meglumine, 0.1 ml 2021-04-21 00:00:00 ANDREIA GRAY Low osmolar contrast materia l, 300-399 mg/ml iodine concentration, per ml 2021-04-21 00:00:00 FREDERICK GRAYNIMila Rdz Computed tomographic angiography, head, with contrast material(s), including noncontrast images, if performed, and image postprocessing 2021-04-21 00:00:00 ANDREIA GRAY Blood, occult, by fecal hemoglobin determination by immunoassay, qualitative, feces, 1-3 simultaneous determinations 2020-11-08 00:00:00 LAB, MISC Mammography of both breasts 2020-07-06 00:00:00 VON LOPEZ Screening digital breast tomosynthesis, bilateral (List separately in addition to code for primary procedure) 2020-07-06 00:00:00 VON LOPEZ Thyroid stimulating hormone (TSH) 2020-05-31 00:00:00 LAB, MISC Lipid panel This panel must include the following: Cholesterol, serum, total (90156) Lipoprotein, direct measurement, high density cholesterol (HDL cholesterol) (56812) Triglycerides (88613) 2020-05-31 00:00:00 LAB, MIS Measurement of albumin 2020-05-31 00:00:00 LAB, MISC Hemoglobin; glycosylated (A1C) 2020-05-31 00:00:00 LAB , MISC Destruction (eg, laser surge ry, electrosurgery, cryosurgery, chemosurgery, surgical curettement), premalignant lesions (eg, actinic keratoses); first lesion 2019-12-25 00:00:00 SURAJ KEARNS X-ray of shoulder 2019-10-06 00:00:00 LUCIE MOTLEY X-ray of wrist 2019-10-06 00:00:00 LUCIE MOTLEY X-ray of cervical spine 2019-10-06 00:00:00 STORM MOTLEY X-ray of shoulder 2019-07-21 00:00:00 LUCIE MOTLEY X-ray of shoulder 2019-06-30 00:00:00 LUCIE MOTLEY X-ray of humerus 2019-06-30 00:00:00 LUCIE MOTLEY X-ray of shoulder 2019-06-20 00:00:00 ARIANE MATHUR X-ray of shoulder 2019-06-20 00:00:00 [facility], [id number] 2019-06-20 00:00:00 [facility], Rheumatoid factor titer 2018-11-15 00:00:00 LAB, MISC Antinuclear antibodies ([place]) 2018-11-15 00:00:00 LAB, MISC Immunization administration (includes percutaneous, intradermal, subcutaneous, or intramuscular injections); 1 vaccine (single or combination vaccine/toxoid) 2018-11-15 00:00:00 JES ANGELES Influenza virus vaccine, quadrivalent (IIV4), split virus, 0.5 mL dosage, for intramuscular use 2018-11-15 00:00:00 JES ANGELES X-ray of hand 2018-08-29 00:00:00 ZAND, TINOOSH X-ray of hand 2018-08-29 00:00:00 ZAND, TINOOSH Hemoglobin; glycosylated (A1C) 2018-08-16 00:00:00 LAB , MISC Thyroid stimulating hormone (TSH) 2018-08-16 00:00:00 LAB, [facility] Lipid panel This panel must include the following: Cholesterol, serum, total (58449) Lipoprotein, direct measurement, high density cholesterol (HDL cholesterol) (14912) Triglycerides (75975) 2018-08-16 00:00:00 LAB, [facility] Measurement of albumin 2018-08-16 00:00:00 LAB, [facility] Screening digital breast tomosynthesis, bilateral (List separately in addition to code for primary procedure) 2018-05-07 00:00:00 ZAND, TINOOSH Mammography of both breasts 2018-05-07 00:00:00 ZAND, TINOOSH Immunization administration (includes percutaneous, intradermal, subcutaneous, or intramuscular injections); 1 vaccine (single or combination vaccine/toxoid) 2017-11-23 00:00:00 JES ANGELES Vaccine for influenza for injection into muscle 2017-11-23 00:00:00 JES ANGELES Hemoglobin; glycosylated (A1C) 2017-11-09 00:00:00 JASWINDER CORTES Bilirubin; direct 2017-11-09 00:00:00 JASWINDER CORTES Measurement of albumin 2017-11-09 00:00:00 JASWINDER CORTES Reason for Visit Hospital Encounter Encounters Start Date/Time End Date/Time Encounter Type Admission Type Attending Clinicians Care Facility Care Department Encounter ID 2025-01-09 18:33:17 [facility] None [id number] [facility] 2025-01-05 21:29:23 [facility] None [id number] 2025-01-02 08:48:40 [facility] None [id number] [facility] 2024-08-28 16:00:26 [facility] None [id number] 2024-07-01 00:00:00 Professional Claim 0 [place] [facility] Unknown [id number] @[facility] 2024-06-13 00:00:00 Institutiona l Claim 0 [place] Medicaid Unknown [id number] @[facility] 2024-06-13 00:00:00 Professional Claim 0 [place] Medicaid Unknown [id number] @[facility] 2024-06-13 00:00:00 Professional Claim 0 [place] Medicaid Unknown [id number] @[facility] 2024-06-13 00:00:00 Professional Claim 0 [place] [facility] Unknown [id number] @[facility] 2024-05-20 00:00:00 Professional Claim 0 [place] Medicaid Unknown [id number] @[facility] 2024-04-11 00:00:00 Professional Claim 0 [place] Medicaid Unknown [id number] @[facility] 2024-03-20 00:00:00 Professional Claim 0 [place] Medicaid Unknown [id number] @[facility] 2024-03-20 00:00:00 Professional Claim 0 [place] [facility] Unknown [id number] @[facility] 2024-03-20 00:00:00 Professional Claim 0 [place] Medicaid Unknown [id number] @[facility] 2024-01-31 00:00:00 Professional Claim 0 [place] Medicaid Unknown [id number] @[facility] 2024-01-22 00:00:00 Professional Claim 0 [place] Medicaid Unknown [id number] @[facility] 2024-01-21 00:00:00 Professional Claim 0 [place] Medicaid Unknown [id number] @[facility] 2024-01-08 00:00:00 Professional Claim 0 [place] Medicaid Unknown [id number] @[facility] 2023-12-27 00:00:00 Professional Claim 0 [place] Medicaid Unknown [id number] @[facility] 2023-12-25 00:00:00 Professional Claim 0 [place] Medicaid Unknown [id number] @[facility] 2023-11-22 00:00:00 Professional Claim 0 [place] Medicaid Unknown [id number] @[facility] 2023-11-19 00:00:00 Professional Claim 0 [place] Medicaid Unknown [id number] @[facility] 2023-11-15 13:05:36 [facility] None [id number] 2023-11-14 00:00:00 Professional Claim 0 [place] Medicaid Unknown [id number] @[facility] 2023-11-14 00:00:00 Professional Claim 0 [place] Medicaid Unknown [id number] @[facility] 2023-11-02 00:00:00 Professional Claim 0 [place] Medicaid Unknown [id number] @[facility] 2023-10-30 00:00:00 Professional Claim 0 [place] [facility] Unknown [id number] @[facility] 2023-10-17 00:00:00 Professional Claim 0 [place] Medicaid Unknown [id number] @[facility] 2023-10-17 00:00:00 Professional Claim 0 [place] Medicaid Unknown [id number] @[facility] 2023-09-27 00:00:00 Professional Claim 0 [place] Medicaid Unknown [id number] @[facility] 2023-08-21 00:00:00 Professional Claim 0 [place] Medicaid Unknown [id number] @[facility] 2023-08-10 00:00:00 Professional Claim 0 [place] Medicaid Unknown [id number] @[facility] 2023-08-09 00:00:00 Professional Claim 0 [place] Medicaid Unknown [id number] @[facility] 2023-07-24 00:00:00 Professional Claim 0 [place] Medicaid Unknown [id number] @[facility] 2023-06-07 00:00:00 Professional Claim 0 [place] Medicaid Unknown [id number] @[facility] 2023-06-07 00:00:00 Professional Claim 0 [place] Medicaid Unknown [id number] @[facility] 2023-06-07 00:00:00 Professional Claim 0 [place] [facility] Unknown [id number] @[facility] 2023-05-09 00:00:00 Professional Claim 0 [place] Medicaid Unknown [id number] @[facility] 2023-02-22 00:00:00 Professional Claim 0 [place] [facility] Unknown [id number] @[facility] 2023-02-22 00:00:00 Professional Claim 0 [place] Medicaid Unknown [id number] @[facility] 2023-02-22 00:00:00 Professional Claim 0 [place] Medicaid Unknown [id number] @[facility] 2023-02-14 00:00:00 Professional Claim 0 [place] Medicaid Unknown [id number] @[facility] 2023-02-01 00:00:00 Professional Claim 0 [place] [facility] Unknown [id number] @[facility] 2023-01-25 00:00:00 Professional Claim 0 [place] [facility] Unknown [id number] @[facility] 2023-01-23 00:00:00 Professional Claim 0 [place] Medicaid Unknown [id number] @[facility] 2023-01-18 00:00:00 Professional Claim 0 [place] [facility] Unknown [id number] @[facility] 2023-01-15 00:00:00 Professional Claim 0 [place] [facility] Unknown [id number] @[facility] 2023-01-10 00:00:00 Professional Claim 0 [place] [facility] Unknown [id number] @[facility] 2023-01-04 00:00:00 Professional Claim 0 [place] [facility] Unknown [id number] @[facility] 2022-12-14 00:00:00 Professional Claim 0 [place] Medicaid Unknown [id number] @[facility] 2022-12-01 00:00:00 Professional Claim 0 [place] Medicaid Unknown [id number] @[facility] 2022-09-14 00:00:00 Professional Claim 0 [place] [facility] Unknown [id number] @[facility] 2022-09-13 00:00:00 Professional Claim 0 VON LOPEZ [place] Unknown [id number] @[facility] 2022-07-06 00:00:00 Professional Claim 0 LAB, MISC [place] Unknown [id number] @[facility] 2022-07-06 00:00:00 Professional Claim 0 LAB, MISC [place] Unknown [id number] @[facility] 2022-07-06 00:00:00 Professional Claim 0 LAB, MISC [place] Unknown [id number] @[facility] 2022-06-02 00:00:00 Professional Claim 0 LAB, MISC [place] Unknown [id number] @[facility] 2022-06-02 00:00:00 Professional Claim 0 LAB, MISC [place] Unknown [id number] @[facility] 2022-05-30 00:00:00 Professional Claim 0 PACO AKHTAR [place] Medicaid Unknown [id number] @[facility] 2022-05-24 00:00:00 Professional Claim 0 SURAJ KEARNS [place] Medicaid Unknown [id number] @[facility] 2022-04-11 00:00:00 Professional Claim 0 JES ANGELES [place] Medicaid Unknown [id number] @[facility] 2022-04-04 00:00:00 Professional Claim 0 JES ANGELES [place] Unknown [id number] @[facility] 2022-03-27 00:00:00 Professional Claim 0 JES ANGELES [place] Unknown [id number] @[facility] 2022-03-20 00:00:00 Professional Claim 0 JES ANGELES [place] Unknown [id number] @[facility] 2022-02-17 00:00:00 Professional Claim 0 LAB MISC [place] Unknown [id number] @[facility] 2022-02-17 00:00:00 Professional Claim 0 LAB, MISC [place] Unknown [id number] @[facility] 2022-02-10 00:00:00 Professional Claim 0 PACO AKHTAR [place] Unknown [id number] @[facility] 2022-01-23 00:00:00 Professional Claim 0 FRED HAMMONDSUZACK [place] Medicaid Unknown [id number] @[facility] 2022-01-05 00:00:00 Professional Claim 0 FRED HAMMONDSUZACK [place] Unknown [id number] @[facility] 2022-01-02 00:00:00 Professional Claim 0 CE COLEMAN [place] Unknown [id number] @[facility] 2022-01-02 00:00:00 Professional Claim 0 CE HOOKER [place] Unknown [id number] @[facility] 2021-12-15 00:00:00 Professional Claim 0 DEMETRIUS HARI KUSUM Gigi [place] Medicaid Unknown [id number] @[facility] 2021-12-12 00:00:00 Professional Claim 0 LAB, MISC [place] Unknown [id number] @[facility] 2021-12-07 00:00:00 Professional Claim 0 LAB, MISC [place] Unknown [id number] @[facility] 2021-12-07 00:00:00 Professional Claim 0 DEMETRIUSHARI CARRILLO L [place] Medicaid Unknown [id number] @[facility] 2021-09-05 00:00:00 Professional Claim 0 LAVIAN, PACO [place] Medicaid Unknown [id number] @[facility] 2021-07-20 00:00:00 Professional Claim 0 VON LOPEZ [place] Unknown [id number] @[facility] 2021-07-11 00:00:00 Professional Claim 0 KEARNSSURAJ Gigi [place] Medicaid Unknown [id number] @[facility] 2021-06-27 00:00:00 Professional Claim 0 PACO AKHTAR [place] Unknown [id number] @[facility] 2021-06-20 00:00:00 Professional Claim 0 FRED HAMMOND [place] Unknown [id number] @[facility] 2021-06-16 00:00:00 Professional Claim 0 GABAYAN, LAMBERT E [place] Medicaid Unknown [id number] @[facility] 2021-06-06 00:00:00 Professional Claim 0 FRED HAMMOND [place] Unknown [id number] @[facility] 2021-06-02 00:00:00 Professional Claim 0 LAB, MISC [place] Unknown [id number] @[facility] 2021-06-02 00:00:00 Professional Claim 0 GABAYAN, LAMBERT E [place] Medicaid Unknown [id number] @[facility] 2021-06-02 00:00:00 Professional Claim 0 GABAYAN, LAMBERT E [place] Unknown [id number] @[facility] 2021-04-28 00:00:00 Professional Claim 0 LAB, MISC [place] Unknown [id number] @[facility] 2021-04-28 00:00:00 Professional Claim 0 LAB, MISC [place] Unknown [id number] @[facility] 2021-04-21 00:00:00 Professional Claim 0 ANDREIA GRAY [place] Unknown [id number] @[facility] 2021-04-21 00:00:00 Professional Claim 0 ANDREIA GRAY C [place] Unknown [id number] @[facility] 2021-01-10 00:00:00 Professional Claim 0 KEARNSSURAJ [place] Unknown [id number] @[facility] 2020-11-29 00:00:00 Professional Claim 0 BEENA LEI [place] Unknown [id number] @[facility] 2020-11-08 00:00:00 Professional Claim 0 LAB, MISC [place] Unknown [id number] @[facility] 2020-10-14 00:00:00 Professional Claim 0 JES ANGELES [place] Unknown [id number] @[facility] 2020-07-08 00:00:00 Professional Claim 0 SURAJ KEARNS [place] Unknown [id number] @[facility] 2020-07-08 00:00:00 Professional Claim 0 KEARNS SURAJ L [place] Unknown [id number] @[facility] 2020-07-06 00:00:00 Professional Claim 0 VON LOPEZ [place] Unknown [id number] @[facility] 2020-05-31 00:00:00 Professional Claim 0 LABSTORMY [place] Unknown [id number] @[facility] 2019-12-25 00:00:00 Professional Claim 0 SURAJ KEARNS [place] Unknown [id number] @[facility] 2019-12-08 00:00:00 Professional Claim 0 LUCIE MOTLEY [place] Unknown [id number] @[facility] 2019-10-06 00:00:00 Professional Claim 0 LUCIE MOTLEY [place] Unknown [id number] @[facility] 2019-10-06 00:00:00 Professional Claim 0 LUCIE MOTLEY [place] Unknown [id number] @[facility] 2019-08-07 00:00:00 Professional Claim 0 SURAJ KEARNS [place] Unknown [id number] @[facility] 2019-07-21 00:00:00 Professional Claim 0 LUCIE MOTLEY [place] Unknown [id number] @[facility] 2019-06-30 00:00:00 Professional Claim 0 LUCIE MOTLEY [place] Unknown [id number] @[facility] 2019-06-30 00:00:00 Professional Claim 0 LUCIE MOTLEY [place] Unknown [id number] @[facility] 2019-06-26 00:00:00 Professional Claim 0 KARTHIK JES Rdz [place] Unknown [id number] @[facility] 2019-06-23 00:00:00 Professional Claim 0 JES ANGELES [place] Unknown [id number] @[facility] 2019-06-20 00:00:00 Professional Claim 0 ARIANE MATHUR [place] Unknown [id number] @[facility] 2019-06-20 00:00:00 Institutiona l Claim 0 [facility], [place] Medicaid Unknown [id number] @[facility] 2019-06-20 00:00:00 Professional Claim 0 FRANCHESCA DOWLING [place] Unknown [id number] @[facility] 2019-03-10 00:00:00 Professional Claim 0 DIEGO MARIANO [place] Unknown [id number] @[facility] 2019-02-07 00:00:00 Professional Claim 0 DIEGO MARIANO [place] Unknown [id number] @[facility] 2019-01-10 00:00:00 Professional Claim 0 MARLENE BOSS [place] Unknown [id number] @[facility] 2019-01-07 00:00:00 Professional Claim 0 JES ANGELES [place] Unknown [id number] @[facility] 2018-12-23 00:00:00 Professional Claim 0 JES ANGELES [place] Unknown [id number] @[facility] 2018-11-15 00:00:00 Professional Claim 0 STORMY PORTILLO [place] Unknown [id number] @[facility] 2018-11-15 00:00:00 Professional Claim 0 JES ANGELES [place] Unknown [id number] @[facility] 2018-10-30 00:00:00 Professional Claim 0 SURAJ MEMBRENO [place] Unknown [id number] @[facility] 2018-08-29 00:00:00 Professional Claim 0 ZADANIEL TINZUHAIR [place] Medicaid Unknown [id number] @[facility] 2018-08-29 00:00:00 Professional Claim 0 ZAND, TINOOSH [place] Unknown [id number] @[facility] 2018-08-16 00:00:00 Professional Claim 0 JES ANGELES [place] Unknown [id number] @[facility] 2018-08-16 00:00:00 Professional Claim 0 LAB MISKajal [place] Unknown [id number] @[facility] 2018-05-07 00:00:00 Professional Claim 0 JESSICA, TINOODANNY [place] Unknown [id number] @[facility] 2018-05-03 00:00:00 Professional Claim 0 JOHNNA PALOMARES [place] Unknown [id number] @[facility] 2018-02-08 00:00:00 Professional Claim 0 SOFEN, JOHNNA L [place] Medicaid Unknown [id number] @808 2017-12-18 00:00:00 Professional Claim 0 JOHNNA PALOMARES Medicaid Unknown [id number] @808 2017-11-23 00:00:00 Professional Claim 0 JES ANGELES [place] Unknown [id number] @808 2017-11-09 00:00:00 Professional Claim 0 JASWINDER CORTES [place] Unknown [id number] @808 2024-06-13 17:15:00 2024-06-13 22:01:00 Emergency E GEOVANYPORFIRIO [facility] ([facility]) Medical [id number] 2019-06-20 18:53:00 2019-06-20 21:16:00 E E SIDDHARTH LANDON [facility] ([facility]) Medical [id number] Results Radiology Results US Renal (Retroperitoneal Limited)???2025-01-09 16:27:39 EXAM: ULTRASOUND RENAL HISTORY: Hematuria. TECHNIQUE: Sonographic imaging of the kidneys was performed. Standard grayscale images were acquired with additional Doppler interrogation when appropriate. COMPARISON: None available. FINDINGS: Right kidney: Length: 11.6 cm. Parenchymal thickness and echogenicity are within normal limits. No hydronephrosis. No sonographic evidence of focal renal lesion. In the inferior pole of the right kidney 7 mm echogenic structure is noted. Left kidney: Length: 9.4 cm. Parenchymal thickness and echogenicity are within normal limits. No hydronephrosis. No sonographic evidence of focal renal lesion. No sonographic evidence of nephrolithiasis. IMPRESSION: 1. Normal renal ultrasound. 2. Questionable 7 mm nonobstructing right renal stone. Recommend follow-up with noncontrast CT of the abdomen and pelvis. Dictated by: Nesha Carlin ELECTRONICALLY SIGNED ON: 01/09/2025 at 16:27:39 MR Brain W WO???2025-01-05 19:23:55 EXAM: MRI BRAIN WITHOUT AND WITH CONTRAST HISTORY: Migraines. TECHNIQUE: Multiplanar multisequence MR images were performed before and after the administration of intravenous contrast. Contrast: The patient was injected with 7.5 cc Gadavist from a 7.5 cc single-use vial (remainder discarded). COMPARISON: None available. FINDINGS: Scattered punctate and small periventricular and subcortical white matter T2/FLAIR hyperintensitieswithout mass effect or volume loss are consistent with mild microangiopathic white matter changes. No diffusion restriction is present to suggest acute or subacute ischemia. No intra-axial or extra-axial mass, hemorrhage, or fluid collection is present. No blood-degradation products on the susceptibility-weighted imaging. No pathologic enhancement following contrast administration is appreciated. Basilar cisterns, ventricles, and sulci are normal in size and configuration. Foramen magnum is normal without intramedullary mass at the level of the medulla or anomaly of the opisthion, basion, or atlantodental interval. C1-C2 junction is anatomically aligned. Visualized cervical spinal canal is patent. Pituitary gland is normal in size. Visualized paranasal sinuses are well aerated. Orbits are normal. Mastoid air cells are clear. Visualized intracranial arterial flow voids appear normal. Calvarium is normal. Visualized upper neck soft tissues are normal. IMPRESSION: 1. No acute intracranial abnormality such as acute ischemia, mass effect, hydrocephalus, or intracranial hemorrhage. 2. Mild microangiopathic white matter disease consistent with chronic small vessel ischemia most often seen as a manifestation of hypertensive arteriosclerosis and/or metabolic factors such as hyperch olesterolemia/hypertriglyceridemia. 3. No pathologic enhancement within the brain parenchyma. Nelson Huerta M.D., [facility], [facility] Neuroradiology Dictated by: Nelson Huetra ELECTRONICALLY SIGNED ON: 01/05/2025 at 19:23:55 US Transvaginal Only???2025-01-02 06:43:15 EXAM: ULTRASOUND PELVIS, TRANSVAGINAL ONLY HISTORY: Hemorrhage, not elsewhere classified. LMP: Postmenopausal. TECHNIQUE: Sonographic imaging of the pelvis was performed utilizing transvaginal approach. COMPARISON: None available. FINDINGS: Uterus: Orientation: Retroverted. Size: 5 x 2.2 x 2.7 cm. Myometrium: Diffusely heterogeneous. No myometrial mass. Endometrium: Normal. The endometrial thickness measures 2 mm. Cervix: Normal. Adnexa: No adnexal mass or free fluid is seen. Neither ovary is visualized, evaluation limited by overlying bowel gas. [place]: No mass or free fluid is seen. IMPRESSION: 1. Atrophic uterus with normal endometrial thickness. No myometrial mass. 2. Both ovaries are not visualized. Dictated by: Lux Burnham ELECTRONICALLY SIGNED ON: 01/02/2025 at 06:43:15 MA Richard Digital Screening Mammo Bilat???2024-08-28 13:54:55 EXAM: TOMOSYNTHESIS DIGITAL SCREENING BILATERAL MAMMOGRAPHY HISTORY: Screening TECHNIQUE: Mediolateral oblique and craniocaudal views were obtained using a digital tomosynthesis system (3D imaging) with 2D mammogram. Computer-Aided Detection (CAD) was used. COMPARISON: August 2023 and August 2022 FINDINGS: Breast Composition: The breasts are heterogeneously dense, which may obscure small masses. Minimal scattered benign-appearing calcification. No focal mass or asymmetry. No significant interval change. IMPRESSION: Benign findings RECOMMENDATION: Annual mammography. Given the degree of breast density consider supplementing this study with a screening breast ultrasound ASSESSMENT: BI-RADS Category 2: Benign. A letter regarding the results of this study has been sent to the patient. Dictated by: Paolo Mejía ELECTRONICALLY SIGNED ON: 08/28/2024 at 13:54:55 MR Cervical Spine WO???2023-11-15 10:06:50 EXAM: MRI CERVICAL SPINE WITHOUT CONTRAST HISTORY: Radiculopathy TECHNIQUE: Multiplanar, multisequence noncontrast images were obtained. COMPARISON: 06/13/2021 FINDINGS: Straightening of the normal cervical lordosis. Bone marrow signal intensity is benign. The spinal cord signal intensity is normal. The included brain is normal. The paraspinous soft tissues are normal. Discs: C2-3: No central canal or foraminal stenosis. C3-4: No central canal or foraminal stenosis. C4-5: Mild disc bulge. Uncovertebral joint spurring and facet arthrosis. Mild bilateral foraminal narrowing. Mild central canal narrowing C5-6: Asymmetric disc bulge. Uncovertebral joint spurring and facet arthrosis. Moderate left foraminal narrowing. Mild central canal and right foraminal narrowing. C6-7: Disc degeneration. Bilateral uncovertebral joint spurring and facet arthrosis. No significantcentral canal stenosis. Mild bilateral foraminal narrowing. C7-T1: No central canal or foraminal stenosis. IMPRESSION: Stable cervical spondylosis deformans without high-grade central canal or foraminal stenosis. Dictated by: Phil Stone ELECTRONICALLY SIGNED ON: 11/15/2023 at 10:06:50 MR Lumbar Spine WO???2023-11-15 10:05:52 EXAM: MRI LUMBAR SPINE WITHOUT CONTRAST HISTORY: Radiculopathy. TECHNIQUE: Multiplanar, multisequence noncontrast images were obtained. COMPARISON: 05/27/2021 FINDINGS: 5 nonrib-bearing lumbar type vertebral bodies. Grade 1 anterolisthesis of L5 on S1. Thinning of theL5 pars interarticularis bilaterally. Bone marrow signal intensity is benign. The conus terminates at L1. The paraspinous soft tissues are normal. Discs: L1-L2: No significant disc bulge, Schmorl's nodes, or Modic changes. No significant facet arthrosis. No central canal or foraminal stenosis. L2-L3: Disc degeneration. Bilateral facet arthrosis. No significant central canal canal stenosis. Mild bilateral foraminal stenosis. L3-L4: Disc degeneration. Bilateral facet arthrosis. No significant central canal canal stenosis. Mild bilateral foraminal stenosis. L4-L5: Disc degeneration with an asymmetric disc bulge and nonacute Schmorl's nodes. Bilateral facet arthrosis. Moderate bilateral foraminal narrowing. Mild central canal narrowing L5-S1: Grade 1 anterolisthesis uncovers an asymmetric disc bulge. Advanced bilateral facet arthrosis. Moderate to marked bilateral foraminal narrowing. Mild central canal stenosis. IMPRESSION: Progression of bilateral foraminal narrowing at L5-S1. No nerve root impingement. Thinning of the L5 pars interarticularis bilaterally. Dictated by: Phil Stone ELECTRONICALLY SIGNED ON: 11/15/2023 at 10:05:52 Assessments Condition Name Status Diagnosis Date Treating Cl inician 2-part nondisplaced fracture of surgical neck of right humerus (initial encounter for closed fracture) Active Shoulder Pain Active Unspecified displaced fractu re of surgical neck of right humerus (initial encounter for closed fracture) Unknown Pain in right shoulder Unknown Cervicalgia Unknown Cervicalgia Unknown Unspecified displaced fractu re of surgical neck of right humerus (initial encounter for closed fracture) Unknown Actinic keratosis Unknown Unspecified displaced fractu re of surgical neck of right humerus (initial encounter for closed fracture) Unknown Encounter for screening for diabetes mellitus Unknown Encounter for screening for lipoid disorders Unknown Encounter for screening mamm ogram for malignant neoplasm of breast Unknown Pain in unspecified joint Unknown Pain in left shoulder Unknown Other specified postprocedural states Unknown Encounter for screening for diabetes mellitus Unknown Encounter for screening for lipoid disorders Unknown Family history of other endo crine, nutritional and metabolic diseases Unknown Encounter for screening for diabetes mellitus Unknown Family history of other endo crine, nutritional and metabolic diseases Unknown Encounter for screening for lipoid disorders Unknown Pain in right hand Unknown Cyst of pancreas Unknown Disorder of the skin and sub cutaneous tissue, unspecified Unknown Pain in left hand Unknown Actinic keratosis Unknown Inflamed seborrheic keratosis Unknown Pain in unspecified joint Unknown Actinic keratosis Unknown Encounter for screening for malignant neoplasm of skin Unknown Inflamed seborrheic keratosis Unknown Pain in right hip Unknown Pain in unspecified joint Unknown Encounter for immunization Unknown Body mass index (BMI) 29.0-29.9, adult Unknown Encounter for immunization Unknown Pain in left shoulder Unknown Body mass index (BMI) 30.0-30.9, adult Unknown Pain in left shoulder Unknown Acute upper respiratory infe ction, unspecified Unknown Body mass index (BMI) 29.0-29.9, adult Unknown Strain of muscle(s) and tend on(s) of the rotator cuff of left shoulder (initial encounter) Unknown Inflamed seborrheic keratosis Unknown Actinic keratosis Unknown Strain of muscle(s) and tend on(s) of the rotator cuff of left shoulder (initial encounter) Unknown Actinic keratosis Unknown Seborrheic dermatitis, unspecified Unknown Inflamed seborrheic keratosis Unknown Strain of muscle(s) and tend on(s) of the rotator cuff of left shoulder (initial encounter) Unknown Adhesive capsulitis of left shoulder Unknown Encounter for screening mamm ogram for malignant neoplasm of breast Unknown Unspecified displaced fractu re of surgical neck of right humerus (initial encounter for closed fracture) Unknown Other specified postprocedural states Unknown 2-part nondisplaced fracture of surgical neck of right humerus (initial encounter for closed fracture) Unknown 2-part nondisplaced fracture of surgical neck of right humerus (initial encounter for closed fracture) Unknown Pain in right shoulder Unknown 2-part nondisplaced fracture of surgical neck of right humerus (initial encounter for closed fracture) Unknown 2-part nondisplaced fracture of surgical neck of left humerus (initial encounter for closed fracture) Unknown Unspecified displaced fractu re of surgical neck of right humerus (initial encounter for closed fracture) Unknown Unspecified displaced fractu re of surgical neck of right humerus (initial encounter for closed fracture) Unknown Unspecified displaced fractu re of surgical neck of right humerus (initial encounter for closed fracture) Unknown Actinic keratosis Unknown Inflamed seborrheic keratosis Unknown Other chest pain Active Chest Pain Active Shortness of Breath Active Multiple myeloma not having achieved remission Unknown Encounter for screening for malignant neoplasm of colon Unknown Monoclonal gammopathy Unknown Other dietary vitamin B12 deficiency anemia Unknown Other migraine, not intracta ble, without status migrainosus Unknown Hyperlipidemia, unspecified Unknown Encounter for screening for depression Unknown Monoclonal gammopathy Unknown Idiopathic hypotension Unknown Monoclonal gammopathy Unknown Other dietary vitamin B12 deficiency anemia Unknown Inflamed seborrheic keratosis Unknown Dizziness and giddiness Unknown Vasomotor rhinitis Unknown Monoclonal gammopathy Unknown Other dietary vitamin B12 deficiency anemia Unknown Other migraine, not intracta ble, without status migrainosus Unknown Hyperlipidemia, unspecified Unknown R51.9 Unknown Essential (primary) hypertension Unknown Paresthesia of skin Unknown Disorder of lipoprotein meta bolism, unspecified Unknown Other long-term (current) drug therapy Unknown Monoclonal gammopathy Unknown Other fatigue Unknown Essential (primary) hypertension Unknown Paresthesia of skin Unknown Disorder of lipoprotein meta bolism, unspecified Unknown 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 Unknown Essential (primary) hypertension Unknown Paresthesia of skin Unknown Disorder of lipoprotein meta bolism, unspecified Unknown Other long-term (current) drug therapy Unknown R51.9 Unknown Sensorineural hearing loss, bilateral Unknown Other peripheral vertigo, bilateral Unknown Atherosclerotic heart diseas e of [place] coronary artery without angina pectoris Unknown Shortness of breath Unknown Dizziness and giddiness Unknown Other hyperlipidemia Unknown Atherosclerotic heart diseas e of [place] coronary artery without angina pectoris Unknown Shortness of breath Unknown Dizziness and giddiness Unknown Other hyperlipidemia Unknown Dizziness and giddiness Unknown Monoclonal gammopathy Unknown Encounter for screening for depression Unknown Monoclonal gammopathy Unknown Other dietary vitamin B12 deficiency anemia Unknown Other migraine, not intracta ble, without status migrainosus Unknown Hyperlipidemia, unspecified Unknown Seborrheic dermatitis, unspecified Unknown Inflamed seborrheic keratosis Unknown Encounter for screening mamm ogram for malignant neoplasm of breast Unknown Monoclonal gammopathy Unknown Other fatigue Unknown Diverticulosis of intestine, part unspecified, without perforation or abscess without bleeding Unknown Encounter for general adult medical examination without abnormal findings Unknown Monoclonal gammopathy Unknown Pain in right shoulder Unknown Essential (primary) hypertension Unknown Paresthesia of skin Unknown Disorder of lipoprotein meta bolism, unspecified Unknown Other long-term (current) drug therapy Unknown Essential (primary) hypertension Unknown Paresthesia of skin Unknown Disorder of lipoprotein meta bolism, unspecified Unknown 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 Unknown Pain in right shoulder Unknown Pain in left shoulder Unknown Encounter for screening for malignant neoplasm of colon Unknown Body mass index (BMI) 30.0-30.9, adult Unknown Other spondylosis with radic ulopathy, cervical region Unknown Encounter for screening for malignant neoplasm of colon Unknown Spinal stenosis, lumbosacral region Unknown Spinal stenosis, lumbar miryam on without neurogenic claudication Unknown G96.810 Unknown R51.9 Unknown Other hyperlipidemia Unknown Dizziness and giddiness Unknown Shortness of breath Unknown Atherosclerotic heart diseas e of [place] coronary artery without angina pectoris Unknown Monoclonal gammopathy Unknown Other dietary vitamin B12 deficiency anemia Unknown Actinic keratosis Unknown Inflamed seborrheic keratosis Unknown Seborrheic dermatitis, unspecified Unknown R51.9 Unknown G96.810 Unknown Paresthesia of skin Unknown Encounter for screening for depression Unknown Monoclonal gammopathy Unknown Other dietary vitamin B12 deficiency anemia Unknown Other migraine, not intracta ble, without status migrainosus Unknown Hyperlipidemia, unspecified Unknown Monoclonal gammopathy Unknown Spondylosis without myelopat hy or radiculopathy, cervical region Unknown Encounter for immunization Unknown Spondylosis without myelopat hy or radiculopathy, lumbar region Unknown Seborrheic dermatitis, unspecified Unknown Inflamed seborrheic keratosis Unknown R51.9 Unknown G96.810 Unknown Paresthesia of skin Unknown Essential (primary) hypertension Unknown Paresthesia of skin Unknown Disorder of lipoprotein meta bolism, unspecified Unknown 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 Unknown Essential (primary) hypertension Unknown Paresthesia of skin Unknown Disorder of lipoprotein meta bolism, unspecified Unknown 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 Unknown Essential (primary) hypertension Unknown Paresthesia of skin Unknown 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 Unknown Disorder of lipoprotein meta bolism, unspecified Unknown Monoclonal gammopathy Unknown Other fatigue Unknown Other specified menopausal a nd perimenopausal disorders Unknown Impaired glucose tolerance (oral) Unknown Pain in left foot Unknown Pain in left shoulder Unknown Shortness of breath Unknown Other chest pain Unknown Family history of ischemic h eart disease and other diseases of the circulatory system Unknown Other chest pain Unknown Other chest pain Unknown Z20.822 Unknown Other chest pain Unknown R51.9 Unknown Paresthesia of skin Unknown G96.810 Unknown Monoclonal gammopathy Unknown Pain in left shoulder Unknown Pain in right shoulder Unknown Dysphagia, pharyngeal phase Unknown Encounter for screening mamm ogram for malignant neoplasm of breast Unknown Unspecified visual disturbance Unknown Impaired glucose tolerance (oral) Unknown Other chronic pain Unknown R51.9 Unknown Encounter for immunization Unknown R51.9 Unknown Acute upper respiratory infe ction, unspecified Unknown Encounter for screening mamm ogram for malignant neoplasm of breast Unknown Actinic keratosis Unknown Seborrheic dermatitis, unspecified Unknown Actinic keratosis Unknown Seborrheic dermatitis, unspecified Unknown Inflamed seborrheic keratosis Unknown Other disorders of pituitary gland Unknown Encounter for screening for malignant neoplasm of colon Unknown Other specified disorders of left ear Unknown Neoplasm of unspecified beha vior of bone, soft tissue, and skin Unknown R51.9 Unknown R51.9 Unknown Encounter for other specifie d special examinations Unknown Monoclonal gammopathy Unknown Other fatigue Unknown Encounter for screening for malignant neoplasm of colon Unknown Monoclonal gammopathy Unknown Other fatigue Unknown R51.9 Unknown R51.9 Unknown Encounter for screening for malignant neoplasm of colon Unknown R51.9 Unknown R51.9 Unknown Essential (primary) hypertension Unknown Paresthesia of skin Unknown Disorder of lipoprotein meta bolism, unspecified Unknown Other forms of acute ischemic heart disease Unknown Essential (primary) hypertension Unknown Paresthesia of skin Unknown Disorder of lipoprotein meta bolism, unspecified Unknown Other forms of acute ischemic heart disease Unknown 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 Unknown 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 Unknown Actinic keratosis Unknown Inflamed seborrheic keratosis Unknown 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 Unknown 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 Unknown R51.9 Unknown Inflamed seborrheic keratosis Unknown Encounter for screening for malignant neoplasm of cervix Unknown Encounter for screening for malignant neoplasm of cervix Unknown Essential (primary) hypertension Unknown Paresthesia of skin Unknown Disorder of lipoprotein meta bolism, unspecified Unknown Other forms of acute ischemic heart disease Unknown Essential (primary) hypertension Unknown Paresthesia of skin Unknown Disorder of lipoprotein meta bolism, unspecified Unknown Other forms of acute ischemic heart disease Unknown Essential (primary) hypertension Unknown Paresthesia of skin Unknown Disorder of lipoprotein meta bolism, unspecified Unknown Other forms of acute ischemic heart disease Unknown R51.9 Unknown Migraine, unspecified, not i ntractable, without status migrainosus Unknown Dizziness and giddiness Unknown Cerebral infarction, unspecified Unknown Migraine, unspecified, not i ntractable, without status migrainosus Unknown Paresthesia of skin Unknown Disorder of lipoprotein meta bolism, unspecified Unknown 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
[2025-02-07 11:40] VITALS: BP 149/67; PULSE 74; RESP 16; TEMP 36.9; O2SAT 95; BMI 31.2
--- NOTE | 2025-02-07 11:41 | XRR_ITS ---
PROCEDURE INFORMATION: Exam: XR Left Ankle Exam date and time: 02/07/2025 11:48 AM Age: 59 years old Clinical indication: Pain; Ankle; Left; Additional info: Lt lateral/posterior ankle pain/swelling after fall yesterday TECHNIQUE: Imaging protocol: Radiologic exam of the left ankle. Views: 3 or more views. COMPARISON: No relevant prior studies available. FINDINGS: Bones/joints: Displaced distal fibular fracture. Soft tissues: Lateral ankle swelling. XR/XR ankle LT min 3V* [id number] IMPRESSION: Displaced distal fibular fracture. Lateral ankle swelling.
--- NOTE | 2025-02-07 11:42 | ED_ITS ---
HPI - Extremity Injury (Lower) General: Chief Complaint: Extremity Injury, Lower Stated Complaint: Lt ankle inj Time Seen by Provider: 02/07/25 11:40 History of Present Illness: 59-year-old female With a history of hyp ertension, obesity, anxiety and depression who presents to the emergency room with left ankle pain after a fall last night. She has some bruising on the lateral side of her ankle. Some swelling. No obvious deformity. She says she tripped going up some stairs. She has been able to bear some weight but is painful. Related Data Previous Rx's ?Medication ?Instructions ?Recorded hydrocodone 5 mg-acetaminophen 325 1 tab PO Q6H PRN pa in #20 tabs 02/07/25 mg tablet polyethylene glycol 3350 17 17 g PO DAILY #510 grams 1 04/10/24 gram/dose oral powder (Miralax) Allergies Allergy/AdvReac Type Severity Reaction Status Date / Time No Known Allergies Allergy Verified 02/07/25 11:45 Review of Systems 2 Narrative: Constitutional symptoms: Negative except as documented in HPI. Skin symptoms: Negative except as documented in HPI. Eye symptoms: Negative except as documented in HPI. ENMT symptoms: Negative except as documented in HPI. Respiratory symptoms: Negative except as documented in HPI. Cardiovascular symptoms: Negative except as documented in HPI. Gastrointestinal symptoms: Negative except as documented in HPI. Genitourinary symptoms: Negative except as documented in HPI. Musculoskeletal symptoms: Negative except as documented in HPI. Neurologic symptoms: Negative except as documented in HPI. Psychiatric symptoms: Negative except as documented in HPI. Endocrine symptoms: Negative except as documented in HPI. Physical Exam Narrative: EXAM NARRATIVE: General: Alert, no acute distress. Skin: warm and dry Head: Normocephalic Neck: Trachea midline Eye: Extraocular movements are intact. Ears, nose, mouth and throat: Oral mucosa moist Respiratory: Respirations are non-labored Musculoskeletal: neurovascularly intact. Some swelling and bruising to the lateral malleolus of the left extremity. No obvious deformity. Gastrointestinal: Abdomen does not appear distended Neurological: Alert and oriented, No focal neurological deficit observed. Psychiatric: Cooperative, appropriate mood & affect. Course Vital Signs: Vital signs: Vital Signs Temperature 98.4 F 02/07/25 11:40 Pulse Rate 75 02/07/25 13:11 Respiratory Rate 16 02/07/25 11:40 Blood Pressure 109/77 02/07/25 13:11 Pulse Oximetry 97 02/07/25 13:11 Oxygen Delivery Me thod Room Air 02/07/25 11:40 MDM - Extremity Injury (Lower) Medical Decision Making Medical decision making Patient's reason for coming to the emergency room: Left ankle injury Social determinants: Patient is from [place]. I reviewed the patient's medical record. No previous records here. I reviewed the patient's current home meds Patient says she takes atorvastatin, BuSpar and Wellbutrin Alternate historians: None Differential diagnosis including but not limited to and based on the above HPI, review of systems and physical exam: In this patient with a musculoskeletal extremity traumatic injury an x-ray is being ordered to rule out fractures and dislocations. Orders placed to evaluate differential diagnosis based on the above differential, HPI and physical exam Reexamination: Patient remained stable. No increased work of breathing. No altered mental status. No focal motor deficits. X-ray of the left ankle: Left fibular fracture. This was reviewed and interpreted by myself the emergency room physician. I also reviewed the radiology report. Splint placed by nursing. Neurovascular intact. Crutches and crutch training Assessment and plan: Ankle fracture ?[place], splint and crutches - Discharged home - Discussed plan with patient. Answered any questions. - Evaluation and treatment of this problem were appropriate in the emergency setting. Lab Data Radiology Impressions Ankle X-Ray 02/07/25 11:41 IMPRESSION: Displaced distal fibular fracture. Lateral ankle swelling. All radiology interpretation(s) finalized by discharge Discharge Plan Discharge Patient Disposition: Home Clinical Impression: Ankle fracture Condition: Stable Prescriptions: New hydrocodone-acetaminophen 5-325 mg tablet 1 tab PO Q6H PRN (Reason: pain) Qty: 20 0RF polyethylene glycol 3350 [Miralax] 17 gram/dose powder 17 g PO DAILY Qty: 510 0RF Rx Instructions: Take 1 scoop daily while taking pain medications. Discharge Orders: Discharge ED (Routine); Ordered 02/07/25 Ordered By: Pina Wright Referrals: anabelle [Other] Tj Hughes DO [Physician, Orthopedics] - 4-7 days Referral Note: Please follow-up with Dr. Hughes or with orthopedic doctor of your choosing Discharge Diet: Usual diet Discharge Activity: Limit activity as instructed Patient Instructions: Crutch Instructions (ED), Splint Care (ED), Opioid Safety, Pain Management, Patient Portal & Angie Instructions Activity Restrictions/Additional Instructions: Thank you for choosing [facility] for your healthcare needs today. You have been screened and evaluated and felt safe for discharge. Health conditions do change or evolve sometimes and as such it is important that you follow up with your Primary Doctor to be re checked, 3-5 days is a general good time frame for follow up. You are always welcome to return to the ED for re assessment if your symptoms are worsening or you have new concerns. (Please note that included in your discharge packet is information concerning opioid safety and pain management. This information is given to all patients who are discharged from the ER regardless of their discharge diagnosis or the medicines they usually take or are prescribed.) Print Language: Czech Coding Level of Care Code ED Venue Coordinator for Tram Hernandez
[2025-02-07] MEDS: HYDROcodone-acetaminophen 5-325 mg Tablet 1 TAB PO (13:00)
[2025-02-07 13:11] VITALS: BP 109/77; PULSE 75; O2SAT 97
== END 2025-02-07 13:13 | disposition home or self-care (01) ==
PROVIDERS: Emergency Provider Emergency Medicine
DX: S82.832A Other fracture of upper and lower end of left fibula, initial encounter for closed fracture (principal); W19.XXXA Unspecified fall, initial encounter; I10 Essential (primary) hypertension
CPT/HCPCS: 73610; 99283; J9999

== ENCOUNTER 2025-02-16 10:40 | Outpatient (CLI) | payer BC, SELFPAY | END 2025-02-16 10:41 | disposition home or self-care (01) | LOC: SPT 10:41 | PROVIDERS: Visit Provider Podiatrist Foot & Ankle Surgery | DX: Z46.89 Encounter for fitting and adjustment of other specified devices (principal); S82.832D Other fracture of upper and lower end of left fibula, subsequent encounter for closed fracture with routine healing; X58.XXXD Exposure to other specified factors, subsequent encounter | CPT/HCPCS: L4361 ==